=== PATIENT | female | born 1985 | race Two or more races ===

== ENCOUNTER 2022-05-23 17:55 | Emergency (ER) | payer BC ==
[~2022-05-23] VITALS: Ht 175.3 cm; Wt 78.0 kg
[2022-05-23] MEDS ORDERED: KETO10TA2 PO (19:13)
[2022-05-23] MEDS ORDERED: KETOROLAC TROMETHAMINE INJ 30 MG/ML VIAL ONE (19:28)
[2022-05-23] MEDS ORDERED: KETOROLAC TROMETHAMINE INJ 30 MG/ML VIAL IM ONE (19:30)
[2022-05-23] MEDS ORDERED: IBUPROFEN 400 MG TABLET ONE (19:33)
--- NOTE | 2022-05-23 19:36 | NUR ---
PT REFUSED TORADOL IM 30MG, MADE AWARE. VERBAL ORDER GIVEN FOR MOTRIN 800MG.
--- NOTE | 2022-05-23 19:38 | NUR ---
Patient discharged to home in stable condition. Written and verbal after care instructions given. Patient verbalizes understanding of instruction.
[2022-05-23 19:47] VITALS: BP 124/86
[2022-05-23] MEDS ORDERED: IBUPROFEN 400 MG TABLET PO ONE (20:00)
== END 2022-05-23 19:48 | disposition home or self-care (01) ==
LOC: ER 18:02
DX: S52.514A Nondisplaced fracture of right radial styloid process, initial encounter for closed fracture (principal); Z79.899 Other long term (current) drug therapy; V89.2XXA Person injured in unspecified motor-vehicle accident, traffic, initial encounter; Y93.89 Activity, other specified; Y92.89 Other specified places as the place of occurrence of the external cause; Y99.8 Other external cause status
CPT/HCPCS: 99284; 71045; 29125; 93005; 73090; 73110; J1885